=== PATIENT | male | born 1950 | race Caucasian/White ===

== ENCOUNTER 2017-02-10 10:15 | Inpatient (IN) | payer OTHER ==
[2017-02-18] MEDS ORDERED: Fentanyl 100 MCG/2 ML VIAL ONE (06:19)
[2017-02-18] MEDS ORDERED: Midazolam HCl 2 mg/2 ml Vial ONE (06:19)
[2017-02-18] MEDS ORDERED: CeleCOXIB 100 MG CAP ONE (06:29)
[2017-02-18] MEDS ORDERED: Gabapentin 300 MG CAP ONE (06:29)
[2017-02-18] MEDS ORDERED: Sodium Chloride 0.9% 100 ML ONE (06:29)
[2017-02-18] MEDS ORDERED: Dexamethasone 4 mg/ml Vial ONE (06:44)
[2017-02-18] MEDS ORDERED: Fentanyl 250 MCG/5 ML VIAL ONE ×2 (07:21→08:49)
[2017-02-18] MEDS ORDERED: Metoprolol Tartrate 5 MG/5 ML VIAL ONE ×2 (07:42→08:56)
[2017-02-18] MEDS ORDERED: Propofol 200 MG/20 ML VIAL ONE ×2 (07:42)
[2017-02-18] MEDS ORDERED: Labetalol HCl 100 MG/20 ML SYR ONE (07:42)
[2017-02-18] MEDS ORDERED: Esmolol 100 MG/10 ML VIAL ONE (07:42)
[2017-02-18] MEDS ORDERED: ePHEDrine/0.9% NaCl/PF SYRINGE 50 mg/10 ml ONE (07:42)
[2017-02-18] MEDS ORDERED: PHENYLEPHRINE-NS 100 MCG/ML 10 ML SYRINGE ONE ×3 (07:42→09:24)
[2017-02-18] MEDS ORDERED: Glycopyrrolate 0.2 MG/ML 5 ML SYRINGE ONE (07:42)
[2017-02-18] MEDS ORDERED: Albuterol Sulfate HFA (OR ONLY) ONE (08:52)
[2017-02-18] MEDS ORDERED: Albumin 5% 500 ML ONE (09:30)
[2017-02-18] MEDS ORDERED: Phenylephrine 10 MG/NS 250 ML 250 ML ONE (09:35)
[2017-02-18] MEDS ORDERED: DOPamine 400 MG/D5W 250 ML 250 ML ONE (09:39)
[2017-02-18] MEDS ORDERED: DOBUTamine 500 mg/250 ml 250 ML IVPB SCH (09:45)
[2017-02-18] MEDS ORDERED: Rocuronium Bromide 50 MG/5 ML VIAL ONE (09:56)
[2017-02-18] MEDS ORDERED: Sodium Bicarbonate 2.4 MEQ/5 ML ONE (10:13)
[2017-02-18] MEDS ORDERED: Sodium Bicarb 50 MEQ/50 ML Abboject 8.4% SYRINGE ONE (10:13)
[2017-02-18] MEDS ORDERED: Promethazine HCl 25 MG/ML VIAL IM PRN ×2 (11:11→13:52)
[2017-02-18] MEDS ORDERED: Promethazine HCl 25 MG/ML VIAL SLOW IVP PRN (11:11)
[2017-02-18] MEDS ORDERED: Ondansetron HCl/PF 4 MG/2 ML Vial IVP PRN ×2 (11:11→13:52)
[2017-02-18] MEDS ORDERED: Insulin Regular 100 units/100 ml in NS IVPB SCH (11:15)
[2017-02-18] MEDS ORDERED: Sodium Chloride 0.9% 10 ML ONE (11:19)
[2017-02-18] MEDS ORDERED: Sodium Chloride For Inhalation 0.9% 3 ML NEB ONE (11:19)
[2017-02-18 11:44] LABS: Oxyhemoglobin 97.1 % (94.0-97.0); Sodium 139 mmol/L (135-148)
[2017-02-18 11:45] LABS: Mode NRM; Vent NO
[2017-02-18] MEDS ORDERED: Norepinephrine 8 MG/250 ML BAG IVPB PRN (12:03)
[2017-02-18] MEDS ORDERED: Post-Op Insulin Drip Protocol IVPB ONE (13:52)
[2017-02-18] MEDS ORDERED: Dextrose 50% Abboject 50 ML SYRINGE SLOW IVP PRN ×2 (14:01→15:43)
[2017-02-18] MEDS ORDERED: Dextrose 5% in Water 1,000 ML IV PRN ×2 (14:01→15:43)
[2017-02-18] MEDS: Sodium Chloride 0.9% 1,000 ML IV SCH ×2 (16:41→21:18)
[2017-02-18] MEDS: Acetaminophen 1,000 MG in Premix Bag 1 BAG IVPB SCH ×2 (16:41→20:11)
[2017-02-18] MEDS ORDERED: Fentanyl 100 MCG/2 ML VIAL SLOW IVP PRN (16:45)
[2017-02-18] MEDS: Fentanyl 100 MCG/2 ML VIAL SLOW IVP PRN (17:13)
[2017-02-18] MEDS: Famotidine 20 MG TAB PO SCH (20:12)
[2017-02-18] MEDS: Famotidine/PF 20 mg/2ml Vial SLOW IVP SCH (20:12)
[2017-02-18] MEDS: Enoxaparin Sodium 40 MG/0.4 ML SYRINGE SC SCH (20:13)
[2017-02-18 21:06] LABS: Troponin I 0.011 ng/mL (< 0.028)
--- NOTE | 2017-02-18 23:42 | OP ---
DATE OF PROCEDURE: 02/18/2017 PREOPERATIVE DIAGNOSIS: Left colon mass x2. POSTOPERATIVE DIAGNOSIS: Left colon mass x2. PROCEDURE: 1. Left colectomy (low anterior resection of colon opened with low pelvic anastomosis. 2. Open mobilization of splenic flexure. 3. Diverting loop ileostomy. SURGEON: Quincy Milan M.D. ANESTHESIA: General. ESTIMATED BLOOD LOSS: 300 mL. COMPLICATIONS: None. FINDINGS: Two ulcerated appearing polyp/malignancies in the left colon found as the colon was opene d at the end of procedure to confirm stitch placed on the most distal margin as well as the distal d onut from the staple line sent as a distal margin as well. INDICATION: The patient is a 66-year-old male who recently underwent colonoscopy revealing two atyp ical polyps with at least atypical cells and high grade dysplasia; however, they presumed to be orestes gnancies. The patient underwent mechanical and antibiotic bowel prep. TECHNIQUE: The patient was taken to the operating room and placed supine on the table. After gener al anesthetic was obtained, a Mcclellan catheter was placed using sterile technique. His abdomen was sh aved preop holding as well as tap blocks placed by Anesthesia. He was placed in lithotomy position. His abdomen and perineum were prepped and draped in a sterile fashion. Left subcostal 5-mm Optivi ew trocar was placed in the usual fashion without injury and high-flow pneumoperitoneum was obtained . Right lower quadrant 12 mm port to the right of the umbilicus 5-mm port were placed under direct visualization. The patient's pelvis was full of dense adhesions and the small bowel mesentery was v tommy fatty and small bowel was unable to be retracted out of the pelvis, decision was made to open. Midline incision was made from mid upper abdomen all the way down to the pubis. Cautery was used to dissect down into the abdominal cavity. Bookwalter retractor was placed. Left colon mobilized jack ng the white line of [place]. The left ureter was found and excluded from the dissection. The perito neum was opened all the way down to the upper rectum on the medial and lateral surfaces. On the med ial surface, a window was made through the mesentery to the lateral, again the ureter was found and excluded from the dissection. Anterior mesenteric artery was taken low between two Tania clamps and silk ties. The mesentery was then marched down towards the upper rectum. The left colon and splen ic flexure was then mobilized in the typical fashion using cautery and LigaSure. The greater omentu m was taken off of the transverse colon above to allow it to reach down into the pelvis, so a full s plenic flexure mobilization was performed. Contour stapler was fired across the upper rectum. The distal transverse colon was thus able to reach down into the pelvis under no tension. A colotomy wa s made just distal to this. The anvil for the 31 EEA was passed proximally and a stapler was fired across the distal transverse colon. The on the anvil was then able to be manipulated out thro ugh the antimesenteric surface of the colon above the staple line. The left colon specimen was elinor ed with a stitch on the distal staple line, it was opened on the back table to reveal the too large ulcerative appearing malignancies. Specimen was sent to path for final diagnosis. The upper colon was able to be brought down into the pelvis under no tension. The base for the EEA is brought up th rough the anus and its tip brought out on the antimesenteric surface of the colon below. This was c onnected to the pin from above. The anastomosis was made, the stapler was fired. There were two go od rings of tissue, the distal most donut was sent to path as the final distal margin, insufflation was used to test the anastomosis under water and there was air leakage. The anastomosis was oversew n using silk pop off sutures. Decision was made for loop ileostomy. A 20 cm proximal to the ileoce theresa valve, the small bowel loop was able to be brought up through a cruciate incision was made in th e fascia and an elliptical incision of skin that was removed in the right lower quadrant, this was h eld, the loop ileostomy outside the abdomen using a [place]. All instrument counts, needle counts, lap counts were correct. The abdomen was irrigated using sterile solution. There was no ongoing bl eeding. Seprafilm was placed. The surgeon scrubbed and assistants all changed gown and gloves. Mi dline fascia was closed using PDS from the top and the bottom and tied in the middle. Subcutaneous tissues were irrigated and the subcutaneous tissues were closed using multiple 3-0 Vicryl sutures, 4 -0 Monocryl and Dermabond used to close the midline incision. Next, the ileostomy was matured in th e typical fashion using 3-0 Vicryl suture. Dermabond had been placed on the midline incision. An i leostomy bar was used to hold the small bowel up against the skin. An ostomy device was placed. Th e patient was en route to recovery in stable condition. All instrument counts, needle counts, lap c ounts were correct.
[2017-02-19 00:15] LABS: Troponin I Less than 0.010 ng/mL (< 0.028)
[2017-02-19] MEDS: Acetaminophen 1,000 MG in Premix Bag 1 BAG IVPB SCH ×2 (01:32→08:16)
[2017-02-19] MEDS: Fentanyl 100 MCG/2 ML VIAL SLOW IVP PRN ×4 (03:55→20:44)
[2017-02-19 04:46] LABS: #Lymphocytes 1.6 thou/uL (1.20-3.40); #Monocytes 1.2 thou/uL (0.11-0.59); #Neutrophils 8.9 thou/uL (1.40-6.50); %Eosinophils 0.2 % (0.0-10.0); %Lymphocytes 13.4 % (21.0-51.0); Hematocrit 38.5 % (42.0-52.0); Mean Platelet Volume 7.8 fL (7.4-10.4); Red Blood Cell (RBC) Count 4.06 mill/uL (4.70-6.10); White Blood Cell (WBC) Count 11.6 thou/uL (4.8-10.8)
[2017-02-19 04:54] LABS: Anion Gap 13 mmol/L (10-20); BUN (Urea Nitrogen) 11 mg/dL (8.4-25.7); Calc. Creatinine Clearance 156 mL/min (70-130); Calcium 8.4 mg/dL (7.8-10.44); Carbon Dioxide 18 mmol/L (23-31); Chloride 109 mmol/L (98-107); Estimated GFR-MDRD 80
[2017-02-19] MEDS: Sodium Chloride 0.9% 1,000 ML IV SCH ×2 (06:02→19:09)
[2017-02-19] MEDS: Famotidine 20 MG TAB PO SCH ×2 (08:18→20:44)
[2017-02-19] MEDS: Famotidine/PF 20 mg/2ml Vial SLOW IVP SCH ×2 (08:19→20:44)
[2017-02-19] MEDS ORDERED: FLU VACC QS2017-18 36 mo. & older 0.5 ML SYRINGE IM ONE (09:00)
[2017-02-19] MEDS ORDERED: Insulin Detemir 100 UNITS/ML 16 UNITS in Pre-Filled Syringe 1 EACH SC SCH (11:15)
[2017-02-19 14:12] VITALS: BMI 40.8
[2017-02-19 14:17] LABS: Oxyhemoglobin 96.3 % (94.0-97.0); Sodium 139 mmol/L (135-148)
[2017-02-19 14:17] LABS: Sodium 140 mmol/L (135-148)
[2017-02-19 14:39] LABS: Mode OR ABG; Vent YES
[2017-02-19 14:42] LABS: Mode OR ABG; Vent YES
--- NOTE | 2017-02-19 15:04 | PRG ---
DATE OF SERVICE: 02/19/2017 SUBJECTIVE: Postop day #1, open left colectomy, diverting loop ileostomy. Mr. Connor is stable overnight, off pressors. Blood pressure is normal. Pain is well controlled. He was up in the meng r few times. Sugars have been controlled on insulin drip. PHYSICAL EXAMINATION: VITAL SIGNS: Afebrile. Vital signs are stable. Good urine output. ABDOMEN: Soft and distended, midline wound healing well. Ostomy mucosa is pink. LABORATORY DATA: White blood cell count is 11, hemoglobin is 13, glucose in the low 100s. ASSESSMENT: Postoperative day #1 left colectomy, open, tolerating clear liquids. PLAN: Transfer to floor. reading recovery teacher to sliding scale tomorrow, likely advance diet, discontinue F oley. Encouraged ambulation.
[2017-02-19] MEDS: Insulin Regular 300 UNITS/3 ML VIAL SC PRN (16:50)
[2017-02-19] MEDS: Enoxaparin Sodium 40 MG/0.4 ML SYRINGE SC SCH (20:44)
[2017-02-20] MEDS: Insulin Regular 300 UNITS/3 ML VIAL SC PRN ×2 (06:13→11:24)
--- NOTE | 2017-02-20 08:07 | PRG ---
DATE OF SERVICE: 02/20/2017 SUBJECTIVE: Postop day #2, left colectomy with diverting ileostomy. Mr. Connor is doing well. He is up in the chair this morning. He is tolerating clear liquids without difficulty. OBJECTIVE: VITAL SIGNS: Afebrile. Vital signs are stable. Adequate urine output. ABDOMEN: Soft, minimally distended, midline wound healing well, no infection. He has occasional lee wel sounds. There is stool in his ileostomy bag. ASSESSMENT: Postop day #2, left colectomy, ileostomy. PLAN: Advance to full liquids, transfer to surgical floor.
[2017-02-20] MEDS: Famotidine 20 MG TAB PO SCH ×2 (09:13→20:56)
[2017-02-20] MEDS: Fentanyl 100 MCG/2 ML VIAL SLOW IVP PRN (11:03)
[2017-02-20] MEDS ORDERED: HYDROcodone/Acetaminophen 10/325 mg Tablet PO PRN (15:19)
[2017-02-20] MEDS: Enoxaparin Sodium 40 MG/0.4 ML SYRINGE SC SCH (20:56)
[2017-02-20] MEDS: HYDROcodone/Acetaminophen 10/325 mg Tablet PO PRN (23:59)
[2017-02-21] MEDS: Famotidine 20 MG TAB PO SCH ×2 (08:49→20:28)
[2017-02-21] MEDS: HYDROcodone/Acetaminophen 10/325 mg Tablet PO PRN ×2 (12:26→23:14)
--- NOTE | 2017-02-21 12:26 | PRG ---
DATE OF SERVICE: 02/21/2017 Mr. Connor is now ambulating in the hallway and doing well, tolerating a full liquid diet, urinat ing on his own without difficulty. He has had ostomy teaching. PHYSICAL EXAMINATION: VITAL SIGNS: Afebrile. Vital signs are stable. ABDOMEN: Soft and minimally distended, but active bowel sounds. Midline wound healing well. ASSESSMENT: Postop day #3 left colectomy with ileostomy. PLAN: GI soft diet tomorrow, likely discharge home tomorrow.
[2017-02-21] MEDS: Insulin Regular 300 UNITS/3 ML VIAL SC PRN (12:27)
[2017-02-21] MEDS: Enoxaparin Sodium 40 MG/0.4 ML SYRINGE SC SCH (20:28)
[2017-02-22] MEDS: Famotidine 20 MG TAB PO SCH (08:49)
--- NOTE | 2017-02-22 08:52 | DIS ---
ADMIT DIAGNOSIS: Left colon cancer. DISCHARGE DIAGNOSIS: Left colon cancer. PROCEDURES: Left colectomy, open with splenic flexure mobilization and diverting loop ileostomy by Dr. Milan without complication. CONDITION AT DISCHARGE: Improved. STAFF: Dr. Quincy Milan HOSPITAL COURSE: The patient was in the ICU overnight secondary to hemodynamic instability during t he operating room. He was also on insulin drip per the SSI protocol, transferred to the floor ambul atory and on clear liquids doing well. Today, he is tolerating a GI soft diet. Pain is well contro lled. Ostomy teaching has been performed. He is being discharged home. Home health will be obtain ed for home ostomy care. Prescriptions given for [place], Zofran and Lomotil p.r.n. He will follow u p with me in 2 weeks.
[2017-02-22 11:37] VITALS: BP 115/75; TEMP 98.6
== END 2017-02-22 12:20 | disposition home health service (06) | DRG 330 ==
LOC: SURG A 02-18 06:06 → EDSTATUS 02-18 10:15 → CCU 02-18 12:59 → SURG B 02-20 14:06
PROVIDERS: ADMIT Surgery; ATTEND Surgery
PROC: 0DTG0ZZ Resection of Left Large Intestine, Open Approach (ICD-10-PCS; principal; 2017-02-18)
PROC: 0D1B0Z4 Bypass Ileum to Cutaneous, Open Approach (ICD-10-PCS; 2017-02-18)
PROC: 0DJD4ZZ Inspection of Lower Intestinal Tract, Percutaneous Endoscopic Approach (ICD-10-PCS; 2017-02-18)
PROC: 3E0T3BZ Introduction of Anesthetic Agent into Peripheral Nerves and Plexi, Percutaneous Approach (ICD-10-PCS; 2017-02-18)
PROC: 3E0T3BZ Introduction of Anesthetic Agent into Peripheral Nerves and Plexi, Percutaneous Approach (ICD-10-PCS; 2017-02-18)
PROC: 3E0T3BZ Introduction of Anesthetic Agent into Peripheral Nerves and Plexi, Percutaneous Approach (ICD-10-PCS; 2017-02-18)
PROC: 3E0T3BZ Introduction of Anesthetic Agent into Peripheral Nerves and Plexi, Percutaneous Approach (ICD-10-PCS; 2017-02-18)
DX: C18.6 Malignant neoplasm of descending colon (principal); Z68.41 Body mass index [BMI] 40.0-44.9, adult; I10 Essential (primary) hypertension; E66.01 Morbid (severe) obesity due to excess calories; R09.89 Other specified symptoms and signs involving the circulatory and respiratory systems; Z53.31 Laparoscopic surgical procedure converted to open procedure; K66.0 Peritoneal adhesions (postprocedural) (postinfection); E11.9 Type 2 diabetes mellitus without complications; Z23 Encounter for immunization
CPT/HCPCS: 36415; 36416; 80048; 82553; 82805; 84484; 85025; 88305; 88309; 90471; 90682; 90732; 93005; 93010; A4216; G0008; G0009; J0131; J0360; J0694; J1100; J1250; J1265; J1650; J1815; J2250; J2704; J3010; J7050; P9045; Q2036

== ENCOUNTER 2017-02-10 10:16 | Outpatient (CLI) | payer OTHER ==
--- OUTSIDE RECORDS SUMMARY | 2017-02-10 10:19 | XMS | Clinical Summary ---
:1950 Author Organization [facility] Address [address] [place] [address] Phone Care Team Providers Name Role Phone , Primary Care Provider Unavailable Allergies Not on File Current Medications Not on file Active Problems Not on file Social History Tobacco Use Types Packs/Day Years Used Date Never Assessed Sex Assigned at Date Recorded Not on file Last Filed Vital Signs Not on file Plan of Treatment Not on file Results Not on filefrom Last 3 Months
[2017-02-10 12:26] LABS: #Basophils 0.1 thou/uL (0.0-0.2); #Eosinphils 0.1 thou/uL (0.0-0.7); #Lymphocytes 1.8 thou/uL (1.20-3.40); #Monocytes 0.5 thou/uL (0.11-0.59); %Eosinophils 1.2 % (0.0-10.0); %Lymphocytes 28.2 % (21.0-51.0); %Monocytes 8.1 % (0.0-10.0); Hematocrit 45.9 % (42.0-52.0); Mean Platelet Volume 8.1 fL (7.4-10.4); Red Blood Cell (RBC) Count 4.83 mill/uL (4.70-6.10); White Blood Cell (WBC) Count 6.4 thou/uL (4.8-10.8)
[2017-02-10 12:34] LABS: Hemoglobin A1c 6.1 % (4.0-6.0)
[2017-02-10 12:43] LABS: Anion Gap 14 mmol/L (10-20); BUN (Urea Nitrogen) 14 mg/dL (8.4-25.7); Calc. Creatinine Clearance 0 mL/min (70-130); Calcium 9.7 mg/dL (7.8-10.44); Carbon Dioxide 21 mmol/L (23-31); Chloride 109 mmol/L (98-107); Estimated GFR-MDRD 70
--- NOTE | 2017-02-13 06:48 | EKG ---
Test Reason : Blood Pressure : / mmHG Vent. Rate : 048 BPM Atrial Rate : 048 BPM P-R Int : 216 ms QRS Dur : 096 ms QT Int : 428 ms P-R-T Axes : 032 027 051 degrees QTc Int : 382 ms Marked sinus bradycardia with 1st degree A-V block Low voltage QRS Abnormal ECG No previous ECGs available Confirmed by NORMA RUIZ ([id number]) on 02/13/2017 6:47:36 AM Referred By: MANUEL Confirmed By:NORMA RUIZ
== END 2017-02-10 10:17 | disposition home or self-care (01) ==
LOC: LABBT 10:16
PROVIDERS: ATTEND Surgery
DX: Z01.812 Encounter for preprocedural laboratory examination (principal); K63.89 Other specified diseases of intestine
CPT/HCPCS: 80048; 83036; 85025; 93005; 93010

== ENCOUNTER 2017-04-02 10:40 | Outpatient (CLI) | payer OTHER | END 2017-04-02 10:41 | disposition home or self-care (01) | LOC: SCSER/OP 10:40 | DX: C18.9 Malignant neoplasm of colon, unspecified (principal); E86.0 Dehydration ==

== ENCOUNTER 2017-04-11 09:32 | Outpatient (CLI) | payer OTHER ==
[2017-04-11 14:15] LABS: #Eosinphils 0.2 thou/uL (0.0-0.7); #Lymphocytes 1.6 thou/uL (1.20-3.40); #Monocytes 0.6 thou/uL (0.11-0.59); #Neutrophils 3.9 thou/uL (1.40-6.50); %Basophils 0.7 % (0.0-1.0); %Eosinophils 2.6 % (0.0-10.0); %Lymphocytes 24.5 % (21.0-51.0); %Monocytes 10.1 % (0.0-10.0); Hematocrit 34.9 % (42.0-52.0); Mean Platelet Volume 6.7 fL (7.4-10.4); Red Blood Cell (RBC) Count 3.73 mill/uL (4.70-6.10); White Blood Cell (WBC) Count 6.3 thou/uL (4.8-10.8)
--- NOTE | 2017-04-11 14:30 | RAD ---
BARIUM ENEMA: History: Patient has had colon cancer with a rectosigmoid anastomosis. Dr. Milan requested barium s tudy to evaluate the rectosigmoid anastomosis specifically, and did not require a complete study. FINDINGS: Barium was introduced into the rectum in a retrograde fashion. There is moderate spasticity to the co jennifer during this exam. There is an area of slight narrowing in the rectosigmoid region, presumably at the area of the anastomosis. No leakage or other abnormalities. IMPRESSION: Mild narrowing at the level of the rectosigmoid anastomosis. No signs of leak. POS: [facility]
[2017-04-11 14:41] LABS: Anion Gap 14 mmol/L (10-20); BUN (Urea Nitrogen) 39 mg/dL (8.4-25.7); Calc. Creatinine Clearance 0 mL/min (70-130); Calcium 9.6 mg/dL (7.8-10.44); Carbon Dioxide 16 mmol/L (23-31); Chloride 112 mmol/L (98-107); Estimated GFR-MDRD 31
== END 2017-04-11 09:33 | disposition home or self-care (01) ==
LOC: RAD 09:32
PROVIDERS: ATTEND Surgery
DX: C18.9 Malignant neoplasm of colon, unspecified (principal); K56.699 Other intestinal obstruction unspecified as to partial versus complete obstruction
CPT/HCPCS: 74280; 80048; 85025

== ENCOUNTER 2017-04-11 13:00 | Inpatient (IN) | payer OTHER ==
[2017-04-11 13:30] VITALS: BMI 34.8
[2017-04-21] MEDS ORDERED: cefOXitin Sodium 2 GM, Syringe 1 ML in Sterile Water 10 ML SLOW IVP SCH (10:45)
[2017-04-21] MEDS ORDERED: Fentanyl 250 MCG/5 ML VIAL ONE (11:29)
[2017-04-21] MEDS ORDERED: Albuterol Sulfate HFA (OR ONLY) ONE (12:32)
[2017-04-21] MEDS ORDERED: Promethazine HCl 25 MG/ML VIAL IM PRN ×2 (13:34→15:17)
[2017-04-21] MEDS ORDERED: Promethazine HCl 25 MG/ML VIAL SLOW IVP PRN (13:34)
[2017-04-21] MEDS ORDERED: Ondansetron HCl/PF 4 MG/2 ML Vial IVP PRN ×2 (13:34→15:17)
[2017-04-21] MEDS ORDERED: Fentanyl 100 MCG/2 ML VIAL ONE ×2 (13:43→14:16)
[2017-04-21] MEDS ORDERED: hydrALAZINE 20 MG/ML VIAL SLOW IVP PRN (15:17)
[2017-04-21] MEDS ORDERED: Dextrose 50% Abboject 50 ML SYRINGE SLOW IVP PRN (15:17)
[2017-04-21] MEDS ORDERED: Fentanyl 100 MCG/2 ML VIAL SLOW IVP PRN ×2 (15:17)
[2017-04-21] MEDS ORDERED: Dextrose 5% in Water 1,000 ML IV PRN (15:17)
[2017-04-21] MEDS ORDERED: HumaLOG 300 UNITS/3 ML VIAL SC PRN (15:17)
[2017-04-21] MEDS ORDERED: Metoprolol Tartrate 5 MG/5 ML VIAL ONE (15:57)
[2017-04-21] MEDS ORDERED: Esmolol 100 MG/10 ML VIAL ONE (15:57)
[2017-04-21] MEDS ORDERED: Glycopyrrolate 0.2 MG/ML 5 ML SYRINGE ONE (15:57)
[2017-04-21] MEDS ORDERED: Lidocaine 1% PF 5 ML VIAL ONE (15:57)
[2017-04-21] MEDS ORDERED: Dexamethasone 20 MG/5 ML VIAL ONE (15:57)
[2017-04-21] MEDS ORDERED: Ondansetron HCl/PF 4 MG/2 ML Vial ONE (15:57)
[2017-04-21] MEDS ORDERED: PHENYLEPHRINE-NS 100 MCG/ML 10 ML SYRINGE ONE (15:57)
[2017-04-21] MEDS ORDERED: Propofol 200 MG/20 ML VIAL ONE (15:57)
[2017-04-21] MEDS: Acetaminophen 1,000 MG in Premix Bag 1 BAG IVPB SCH ×2 (17:14→22:55)
[2017-04-21] MEDS: Sodium Chloride 0.9% 1,000 ML IV SCH ×2 (18:35→22:56)
[2017-04-21] MEDS: Famotidine/PF 20 mg/2ml Vial SLOW IVP SCH (19:55)
[2017-04-21] MEDS: Enoxaparin Sodium 40 MG/0.4 ML SYRINGE SC SCH (19:55)
[2017-04-21] MEDS: cefOXitin Sodium 2 GM, Syringe 1 ML in Sterile Water 10 ML SLOW IVP SCH (19:56)
[2017-04-21] MEDS: Famotidine 20 MG TAB PO SCH (19:57)
[2017-04-22] MEDS: cefOXitin Sodium 2 GM, Syringe 1 ML in Sterile Water 10 ML SLOW IVP SCH (03:03)
[2017-04-22] MEDS: Sodium Chloride 0.9% 1,000 ML IV SCH ×2 (03:03→14:22)
[2017-04-22] MEDS: Acetaminophen 1,000 MG in Premix Bag 1 BAG IVPB SCH ×2 (05:47→11:33)
[2017-04-22 06:14] LABS: #Monocytes 0.8 thou/uL (0.11-0.59); #Neutrophils 7.2 thou/uL (1.40-6.50); %Basophils 0.2 % (0.0-1.0); %Eosinophils 0.3 % (0.0-10.0); %Lymphocytes 10.8 % (21.0-51.0); %Monocytes 8.9 % (0.0-10.0); Hematocrit 28.4 % (42.0-52.0); Red Blood Cell (RBC) Count 2.99 mill/uL (4.70-6.10)
[2017-04-22 06:30] LABS: Anion Gap 12 mmol/L (10-20); BUN (Urea Nitrogen) 20 mg/dL (8.4-25.7); Calc. Creatinine Clearance 69 mL/min (70-130); Calcium 9.2 mg/dL (7.8-10.44); Carbon Dioxide 18 mmol/L (23-31); Chloride 113 mmol/L (98-107); Estimated GFR-MDRD 37
[2017-04-22] MEDS: Famotidine/PF 20 mg/2ml Vial SLOW IVP SCH ×2 (08:03→21:08)
[2017-04-22] MEDS: Famotidine 20 MG TAB PO SCH ×2 (08:07→21:06)
[2017-04-22] MEDS ORDERED: Sodium Chloride 0.9% 1,000 ML IV SCH (12:19)
[2017-04-22] MEDS ORDERED: HYDROcodone/Acetaminophen 10/325 mg Tablet PO PRN ×2 (12:19)
--- NOTE | 2017-04-22 13:02 | PRG ---
DATE OF SERVICE: 04/22/2017 SUBJECTIVE: Mr. Connor is doing well today. He has no nausea. He has been ambulatory. His pain is controlled. OBJECTIVE: VITAL SIGNS: He is afebrile. Vital signs are stable. ABDOMEN: Soft. He has a few bowel sounds. EXTREMITIES: Right lower quadrant wounds are clear without much drainage. LABORATORY DATA: White blood cell count is 9, hemoglobin 9.5, creatinine 1.84. ASSESSMENT: Postoperative day #1, ileostomy takedown. PLAN: Liquid diet today. Potentially home tomorrow. We will add [place] for pain and TKO IV fluids.
[2017-04-22] MEDS: Enoxaparin Sodium 40 MG/0.4 ML SYRINGE SC SCH (21:08)
[2017-04-23] MEDS: Famotidine/PF 20 mg/2ml Vial SLOW IVP SCH (09:28)
[2017-04-23] MEDS: Famotidine 20 MG TAB PO SCH ×2 (09:28→19:45)
--- NOTE | 2017-04-23 09:56 | OP ---
DATE OF PROCEDURE: 04/21/2017 PREOPERATIVE DIAGNOSIS: History of left colon cancer, attention to the loop ileostomy. POSTOPERATIVE DIAGNOSIS: History of left colon cancer, attention to the loop ileostomy. PROCEDURE PERFORMED: Ileostomy takedown with small bowel resection and anastomosis. SURGEON: Quincy Milan M.D. ANESTHESIA: General. ESTIMATED BLOOD LOSS: Minimal. COMPLICATIONS: None. SPECIMEN: None. FINDINGS: History of left colon cancer. INDICATION: The patient is a 66-year-old male who presents status post left colectomy for left colon cancer. Now presents for ileostomy takedown. TECHNIQUE: The patient taken to the operating room and placed supine on the table. After general an esthetic was obtained, a Mcclellan was placed. The abdomen was shaved, prepped and draped in a sterile f ashion. The ostomy mucosa was ellipsed out in a circular incision around the ostomy. Cautery dissec steff down into the subcutaneous tissue. Dissection was performed right on the ileostomy. As it goes down towards the fascia, the abdominal cavity was entered carefully through the ostomy site. All pos terior abdominal wall adhesions were taken down. A IONA-75 stapler was fired across the small bowel j ust proximal and just distal to the mucosa that was attached to the skin. The resultant mesentery wa s taken using the LigaSure. The small bowel proximal and distal was able to be brought together in a n antimesenteric fashion. Enterotomy was made on the antimesenteric surface of each, and the anastom osis was performed using a IONA-75 stapler. The common enterotomy was closed using a TA-60. The stap le line corners and crotch were all oversewn using 3-0 silk suture. The anastomosis was placed back into the abdominal cavity. The wound was irrigated using sterile solution. The posterior fascia was closed using PDS suture. Anterior fascia was closed using PDS suture. The subcutaneous tissues irr igated using warm sterile saline until returns were clear. There was no bleeding. The skin was clos ed using a pure-string of Prolene suture. A Fran was left coming out the middle of the wound. St erile dressings are placed. The patient was en route to recovery in stable condition. All instrumen t counts, needle counts, and lap counts are correct.
[2017-04-23] MEDS ORDERED: Milk Of Magnesia 30 ML UDCUP PO ONE (10:38)
--- NOTE | 2017-04-23 10:46 | PRG ---
DATE OF SERVICE: 04/23/2017 Postop day #2, ileostomy takedown. Mr. Connor has mild nausea, no vomiting. He is hiccupping a little bit. He has not had a bowel m ovement yet, but he is passing some gas. He is urinating on his own. PHYSICAL EXAMINATION: VITAL SIGNS: He is afebrile. His vital signs are stable. ABDOMEN: Soft, minimally distended, but has got bowel sounds. His right lower quadrant dressings ar e changed. The [place] was removed. There is a little bloody drainage that comes out, but no purule nce. ASSESSMENT: Postop day #2 ileostomy takedown by small bowel resection. PLAN: Dose of milk magnesium, home when he has a good bowel movement. If still cramping and distend ed this afternoon we will keep tonight.
[2017-04-23] MEDS: Enoxaparin Sodium 40 MG/0.4 ML SYRINGE SC SCH (19:46)
[2017-04-24] MEDS: Famotidine 20 MG TAB PO SCH (07:53)
[2017-04-24 09:26] VITALS: BP 113/73; TEMP 98.2
--- NOTE | 2017-04-24 12:41 | DIS ---
DATE OF ADMISSION: 04/21/2017 DATE OF DISCHARGE: 04/24/2017 ADMIT DIAGNOSIS: Left colon cancer, tension to loop ileostomy. DISCHARGE DIAGNOSIS: Left colon cancer, tension to loop ileostomy. PROCEDURES: Ileostomy takedown by Dr. Milan with small bowel resection and anastomosis without com plication. CONDITION AT DISCHARGE: Improved. STAFF: Dr. Quincy Milan. HOSPITAL COURSE: The patient had some nausea immediately postop and some bloating. He was started o n a clear liquid diet immediately. On postop day 2, he was still having some cramping and not really had a bowel movement yet. On postop day #3, the patient is now having bowel movements that are most ly liquid stool. He feels better. His abdomen softer and his pain is minimal. PHYSICAL EXAMINATION: VITAL SIGNS: Afebrile. Vital signs are stable. ABDOMEN: Soft. He has active bowel sounds. The Fran drains removed from the ileostomy site. Th e dressings are clean. ASSESSMENT: Doing well status post ileostomy takedown, discharged home. He has already got prescrip tion for tramadol at home. I will go and call prescription for Zofran p.r.n. nausea. He will follow up with me in 2 weeks. He will stay on a soft diet for the next few days. All medicines as before hospitalization.
== END 2017-04-24 12:35 | disposition home or self-care (01) | DRG 331 ==
LOC: SURG A 04-21 09:41 → SJJU 04-21 15:05 → SURG A 04-23 18:04
PROVIDERS: ADMIT Surgery; ATTEND Surgery
PROC: 0DBB0ZZ Excision of Ileum, Open Approach (ICD-10-PCS; principal; 2017-04-21)
DX: Z43.2 Encounter for attention to ileostomy (principal); R11.0 Nausea; Z85.038 Personal history of other malignant neoplasm of large intestine
CPT/HCPCS: 36415; 36416; 80048; 85025; A4216; J0131; J0694; J1100; J1650; J2001; J2405; J2704; J3010; S0028